=== PATIENT | female | born 1970 | race Caucasian/White ===

== ENCOUNTER 2017-10-10 13:53 | Emergency (ER) | payer OTHER ==
[2017-10-10] MEDS: LIDOCAINE 4% CR TOP (14:34)
[2017-10-10] MEDS: LIDOCAINE 2%/EPI (MDV) 20ML INJ INJ (14:45)
== END 2017-10-10 15:29 | disposition home or self-care (01) ==
LOC: FTE 13:53
DX: K64.5 Perianal venous thrombosis (principal)
CPT/HCPCS: 46083; 99284-25

== ENCOUNTER 2018-12-21 19:21 | Emergency (ER) | payer OTHER ==
[2018-12-21] MEDS: LIDOCAINE 1% (MPF) 5 ML VIAL INFIL (21:13)
[2018-12-21] MEDS: LIDOCAINE 4% CR TOP (21:29)
== END 2018-12-21 23:30 | disposition home or self-care (01) ==
LOC: FTE 19:21
DX: K64.4 Residual hemorrhoidal skin tags (principal)
CPT/HCPCS: 46083; 99283-25